=== PATIENT | female | born 2005 | race Caucasian/White ===

== ENCOUNTER 2025-01-03 01:22 | Emergency (ER) | payer OTHER, SELFPAY ==
[2025-01-03 01:33] VITALS: BP 142/94
--- NOTE | 2025-01-03 02:03 | ED.GENMED ---
History of Present Illness
General
Chief Complaint: Crisis Evaluation
Source: patient and family
Exam Limitations: none
Time Seen by Provider: 01/03/25 01:41
Nursing documentation reviewed up to this point in time: agreed with
History of Present Illness
History of Present Illness:
19-year-old female presents to the emergency department with depression and yuni. Patient has had a tumultuous life and stopped taking her medicines a few days ago. Was recommended to come here to get outpatient resources. Denies suicidal
homicidal ideation intent or plan. Lives with her mom who is stable and supportive of her. Denies any medical complaints.
Phy Exam
General Physical Exam
General Presentation: well appearing and no apparent distress
General Skin: warm and dry
General Habitus: normal
General Mental: alert
General Hydration: appears well hydrated
ENT Exam
ENT Exam: EOMI, pharynx normal, neck supple and normocephalic
Eye Exam
Eye Exam: PERRL, cornea clear and conjunctiva normal
Cardiovascular Exam
Cardiovascular Exam: regular rate/rhythm, no edema, no murmur and normal peripheral pulses
Pulmonary Exam
Pulmonary Exam: lungs clear, no respiratory distress, no rales, no crackles, no rhonchi, no stridor, no wheezing and no cough
Gastrointestinal Exam
Gastrointestinal Exam: normal bowel sounds, non tender, soft, no organomegaly, no pulsatile mass and non distended
Neurological Exam
Neurological Exam: alert, oriented x3, no motor deficits and speech normal
Musculoskeletal Exam
Musculoskeletal Exam: full ROM and no edema
Skin Exam
Skin Exam: normal color, warm/dry, no rash and no petechia
Psychiatric Exam
Psychiatric Exam: anxious and depressed
Course
Orders/Labs/Results
Orders:
Orders
01/03/25 01:53
Crisis Consult Urgent
Reason for Consult: pt requesting crisis eval
Comment: reports she is 'not herself'
01/03/25 01:55
Crisis Consult Urgent
Reason for Consult: manic
Vital Signs
Initial and Last Documented VS:
Initial Vital Signs
Temp Pulse Resp BP Pulse Ox
98.5 F 67 20 142/94 98
01/03/25 01:33 01/03/25 01:33 01/03/25 01:01/03/25 01:01/03/25 01:33
Last Documented Vital Signs
Temp Pulse Resp BP Pulse Ox
98.5 F 67 20 142/94 98
01/03/25 01:33 01/03/25 01:33 01/03/25 01:33 01/03/25 01:33 01/03/25 02:59
*Pulse Oximetry
SaO2: 98
Oxygen Mode of Delivery: Room air
*Critical Care Note
Total Time (30-74mins, 75-104mins- exclusive of procedures): Not Applicable
ED Attending Note
-
Portions of this chart may have been created with voice recognition software.� Occasional wrong word or��sound alike� substitutions may have occurred due to the inherent limitations of voice recognition software.
Discharge Plan
Departure
Patient Disposition: Home (Routine Discharge)
Date of Disposition: 01/03/25
Time of Disposition: 02:55
Patient with high blood pressure during this ER visit?: No
Condition: Good
Discharge Problem:
Depression, Anxiety
Referrals:
Mimi,[facility] [Active, Psychiatry]
Activity Restrictions/Additional Instructions:
Thank You for choosing [facility].
It was a pleasure meeting you and taking part in your care. We hope for your continued healing and wellness.
Please read discharge instructions in their entirety. However, they are for general education and may not describe your exact diagnosis at discharge. Information on your ER visit and medical conditions were discussed with you along with appropriate
follow up information...
If indicated, please take your medications as instructed and indicated on discharge paperwork.
Please schedule a follow up appointment as directed. Call to schedule an appointment
Please return to the emergency department with ANY change in, persisting, or worsening of symptoms. If any of your symptoms do not improve, or persist, or become more severe within 6-12 hours, please return to the emergency department for further
care.
Please return to the emergency department if you develop a headache, neck pain/stiffness, fever greater than 100.4F, chest pain, shortness of breath, persistent nausea, vomiting, slurred speech, difficulty walking, numbness/tingling, weakness, signs
of infection or any other symptoms that are worrisome to you.
If you have any questions or concerns please do not hesitate to call the Hospital at or E-mail me directly at [email or web address]
Interventions
Interventions:
*Risk Screen - Suicide Last Done: 01/03/25 01:33
*General Assessment Last Done: 01/03/25 01:33
*Neglect/Abuse Screening Last Done: 01/03/25 01:33
*ED- Fall Risk Assessment Last Done: 01/03/25 01:33
*ED COVID-19 Vaccine History Last Done: 01/03/25 01:33
*Nursing Disposition Last Done: 01/03/25 03:05
ED-Psychological Assessment Last Done: 01/03/25 03:04
Discharge Date and Time
Print Language: [id number]
== END 2025-01-03 03:05 | disposition home or self-care (01) ==
LOC: EMR 01:22
PROVIDERS: EMERGENCY PHYSICIAN Student in an Organized Health Care Education/Training Program
DX: F32.A Depression, unspecified (principal); F41.9 Anxiety disorder, unspecified
CPT/HCPCS: 99283